=== PATIENT | male | born 1995 | race Caucasian/White ===

== ENCOUNTER 2022-11-22 01:14 | Emergency (ER) | payer BC ==
[2022-11-22] MEDS ORDERED: Morphine 4 MG/ML VIAL ONE (04:25)
== END 2022-11-22 04:56 | disposition home or self-care (01) ==
LOC: ERS 01:14
DX: S16.1XXA Strain of muscle, fascia and tendon at neck level, initial encounter (principal); M54.12 Radiculopathy, cervical region; X50.1XXA Overexertion from prolonged static or awkward postures, initial encounter
CPT/HCPCS: 96372; J2270